=== PATIENT | female | born 1990 | race African-American/Black ===

== ENCOUNTER 2022-05-19 00:40 | Inpatient (IN) ==
[2022-05-19 01:38] LABS: Bacteria,Urine Occasional /HPF (Few); Mucus,Urine Occasional /LPF (Occasional); RBC,Urine 2 /HPF (0-4); Squamous Epithelial Cell,Urine Occasional /HPF (0-10)
[2022-05-19 01:39] LABS: Bilirubin,Urine Negative (Negative); Blood, Urine Small mg/dL (Negative); Glucose,Urine (UA) Negative (Negative); Ketones,Urine Negative (Negative); Nitrite,Urine Negative (Negative); Protein,Urine Negative (Negative); Urine Appearance Clear (Clear); Urine Color Yellow (Yellow); Urine Specific Gravity 1.015 (1.001-1.035); Urine Urobilinogen 0.2 eU/dL (<2.0)
[2022-05-19] MEDS ORDERED: METHYLERGONOVINE 0.2 MG/1 ML AMP IM PRN (02:29)
[2022-05-19] MEDS ORDERED: TRANEXAMIC ACID 1,000 MG in SODIUM CHLORIDE 0.9% 100 ML IV PRN (02:29)
[2022-05-19] MEDS ORDERED: BUTORPHANOL 1 MG/ML VIAL IV PRN (02:29)
[2022-05-19] MEDS ORDERED: OXYTOCIN/LR 20 UNIT/1,000 ML BAG IV ONE ×2 (02:29→09:39)
[2022-05-19] MEDS ORDERED: BUTORPHANOL 2 MG/ML VIAL IV PRN (02:29)
[2022-05-19] MEDS ORDERED: miSOPROStoL 200 MCG TABLET RECTAL PRN (02:29)
[2022-05-19] MEDS ORDERED: LACTATED RINGERS 500 ML IV PRN (02:29)
[2022-05-19] MEDS ORDERED: LACTATED RINGERS 250 ML IV ONE (02:29)
[2022-05-19] MEDS ORDERED: CARBOPROST TROMETHAMINE 250 MCG/ML AMP IM PRN (02:29)
[2022-05-19] MEDS ORDERED: ONDANSETRON 4 MG/2 ML VIAL IV PRN ×2 (02:29→09:39)
[2022-05-19] MEDS ORDERED: ACETAMINOPHEN 325 MG TABLET PO PRN ×2 (02:29→09:39)
[2022-05-19] MEDS ORDERED: OXYTOCIN/LR 20 UNIT/1,000 ML BAG IV SCH (02:30)
[2022-05-19] MEDS ORDERED: NALOXONE 0.4 MG/ML VIAL IV PRN (02:32)
[2022-05-19] MEDS ORDERED: ONDANSETRON 4 MG/2 ML VIAL IV ONE (02:32)
[2022-05-19] MEDS ORDERED: ePHEDrine 50 MG/ML VIAL IV PRN (02:32)
[2022-05-19] MEDS ORDERED: LACTATED RINGERS 250 ML IV PRN (02:32)
[2022-05-19] MEDS ORDERED: hydrOXYzine HCL 25 MG/1 ML VIAL IM PRN (02:32)
[2022-05-19] MEDS ORDERED: PROMETHAZINE 25 MG/1 ML VIAL IM ONE (02:32)
[2022-05-19] MEDS ORDERED: diphenhydrAMINE 50 MG/1 ML VIAL IV PRN ×2 (02:32)
[2022-05-19] MEDS ORDERED: fentaNYL 2 MCG/ROPIV 0.2% EPID 100 ML EPIDURAL SCH (03:00)
[2022-05-19] MEDS ORDERED: LACTATED RINGERS 1,000 ML IV SCH (03:00)
[2022-05-19 03:05] LABS: Basophils % 0.2 % (0.0-0.8); Eosinophils % 0.3 % (0.00-10.9); Hematocrit 37.6 VOL% (35.7-47.0); Hemoglobin 12.6 GM/DL (12.0-16.0); Immature Granulocytes % 0.5 %; Immature Granulocytes Absolute 0.05 #; Lymphocytes # 2.1 10*3/uL (1.4-4.0); Lymphocytes % 20.2 % (21.3-54.2); Mean Corpuscular HGB Conc 33.5 GM/DL (32-36); Mean Corpuscular Volume 89.5 FL (87-102); Mean Platelet Volume 11.5 FL (9.6-12.0); Monocytes % 9.4 % (1.7-12.7); Neutrophils % 69.4 % (38.7-73.9); Platelet Count 169 T/CUMM (130-400); Red Cell Distribution Width 14.6 % (9.3-17.3); White Blood Count 10.4 T/CUMM (4-12)
[2022-05-19] MEDS: LACTATED RINGERS 1,000 ML IV SCH ×2 (03:40→06:20)
[2022-05-19] MEDS ORDERED: TERBUTALINE 1 MG/1 ML VIAL SUBCUT STA (06:32)
[2022-05-19] MEDS ORDERED: TERBUTALINE 1 MG/1 ML VIAL ONE (06:34)
[2022-05-19 08:37] LABS: Cord Venous Blood HCO3 21.2 MMOL/L; Cord Venous Blood PCO2 42.2 MMHG; Cord Venous Blood PO2 30.6
[2022-05-19] MEDS ORDERED: LABETALOL 100 MG TABLET PO SCH (09:00)
[2022-05-19] MEDS ORDERED: DIPH/TET/ACEL PERT BOOSTER VACCINE 0.5 ML VIAL IM ONE (09:39)
[2022-05-19] MEDS ORDERED: RHO(D) IMMUNE GLOBULIN 300 MCG SYRINGE IM ONE (09:39)
[2022-05-19] MEDS ORDERED: LANOLIN 50% CREAM 0.3 OZ TUBE TOP PRN (09:39)
[2022-05-19] MEDS ORDERED: BENZOCAINE 20%/MENTHOL 0.5% SPRAY 56 GM CAN TOP PRN (09:39)
[2022-05-19] MEDS ORDERED: MEASLES/MUMPS/RUBELLA VACCINE 0.5 ML VIAL SUBCUT ONE (09:39)
[2022-05-19] MEDS ORDERED: WITCH HAZEL PADS 100/JAR TOP PRN (09:39)
[2022-05-19] MEDS ORDERED: oxyCODONE/ACETAMINOPHEN 5-325 MG TABLET PO PRN (09:39)
[2022-05-19] MEDS ORDERED: BISACODYL 10 MG SUPP RECTAL PRN (09:39)
[2022-05-19] MEDS ORDERED: HYDROCORTISONE 2.5% RECTAL CREAM 30 GM TUBE TOP PRN (09:39)
[2022-05-19] MEDS: IBUPROFEN 800 MG TABLET PO PRN (11:55)
[2022-05-19] MEDS: oxyCODONE/ACETAMINOPHEN 5-325 MG TABLET PO PRN (20:01)
[2022-05-19] MEDS: DOCUSATE SODIUM 100 MG CAPSULE PO SCH (21:22)
[2022-05-20 04:34] LABS: Basophils % 0.2 % (0.0-0.8); Eosinophils # 0.1 10*3/uL (0.0-0.87); Eosinophils % 1.1 % (0.00-10.9); Hematocrit 34.2 VOL% (35.7-47.0); Hemoglobin 11.1 GM/DL (12.0-16.0); Immature Granulocytes % 0.6 %; Immature Granulocytes Absolute 0.06 #; Lymphocytes % 19.9 % (21.3-54.2); Mean Corpuscular HGB Conc 32.5 GM/DL (32-36); Mean Corpuscular Volume 90.5 FL (87-102); Mean Platelet Volume 10.7 FL (9.6-12.0); Monocytes # 0.7 10*3/uL (0.11-0.8); Monocytes % 6.8 % (1.7-12.7); Neutrophils % 71.4 % (38.7-73.9); Platelet Count 146 T/CUMM (130-400); Red Blood Count 3.78 MC/CUMM (3.8-5.5); Red Cell Distribution Width 14.6 % (9.3-17.3); White Blood Count 9.9 T/CUMM (4-12)
[2022-05-20] MEDS: IBUPROFEN 800 MG TABLET PO PRN (06:21)
[2022-05-20] MEDS: DOCUSATE SODIUM 100 MG CAPSULE PO SCH ×2 (09:21→21:00)
[2022-05-20] MEDS: oxyCODONE/ACETAMINOPHEN 5-325 MG TABLET PO PRN ×2 (11:24→21:04)
[2022-05-21 09:27] VITALS: BP 134/80
[2022-05-21] MEDS: DOCUSATE SODIUM 100 MG CAPSULE PO SCH (10:00)
[2022-05-21] MEDS: IBUPROFEN 800 MG TABLET PO PRN (10:00)
== END 2022-05-21 13:38 | disposition home or self-care (01) | DRG 807 ==
LOC: N.LD 00:40 → N.OB 10:31
PROVIDERS: ADMIT Obstetrics & Gynecology; ATTEND Obstetrics & Gynecology